=== PATIENT | female | born 1955 | race Hispanic/Latino ===

== ENCOUNTER 2022-04-17 13:37 | Emergency (ER) | payer MEDICARE ==
[~2022-04-17] VITALS: Ht 157.5 cm; Wt 95.3 kg
[2022-04-17] MEDS ORDERED: BENZONATATE200 MG PO (14:50)
[2022-04-17] MEDS ORDERED: ONDANSETRON ODT4 MG PO (14:50)
[2022-04-17] MEDS ORDERED: IBUPROFEN200 MG PO (14:50)
[2022-04-17] MEDS ORDERED: TAMIFLU75 MG PO (14:51)
[2022-04-17] MEDS ORDERED: THERAFLU FLU &1 EAC1 PO (14:53)
== END 2022-04-17 15:31 | disposition home or self-care (01) ==
LOC: FSED 13:43
DX: R50.9 Fever, unspecified (principal); J10.1 Influenza due to other identified influenza virus with other respiratory manifestations; R05.9 Cough, unspecified; R51.9 Headache, unspecified
CPT/HCPCS: 71046; 83518; 87400; 99283